=== PATIENT | female | born 1990 | race Caucasian/White ===

== ENCOUNTER 2022-07-01 02:37 | Inpatient (IN) | payer BC ==
[2022-07-01 02:59] LABS: #Eosinphils 0.1 thou/uL (0.0-0.7); #Lymphocytes 3.1 thou/uL (1.20-3.40); #Monocytes 1.3 thou/uL (0.11-0.59); #Neutrophils 9.9 thou/uL (1.40-6.50); %Basophils 0.3 % (0.0-1.0); %Eosinophils 0.6 % (0.0-10.0); %Lymphocytes 21.4 % (21.0-51.0); %Neutrophils 68.8 % (42.0-75.0); Hemoglobin 12.1 g/dL (12.0-16.0); Mean Corpuscular HGB CONC 34.7 g/dL (32.0-36.0); Mean Corpuscular Hemoglobin 31.2 pg (27.0-31.0); Mean Corpuscular Volume 89.9 fl (78.0-98.0); Mean Platelet Volume 6.1 fL (7.4-10.4); Platelet Count 327 10x3/uL (130-400); RBC Distribution Width 11.1 % (11.5-14.5); White Blood Cell (WBC) Count 14.4 10x3/uL (4.8-10.8)
[2022-07-01] MEDS ORDERED: Ketorolac Tromethamine 30 MG/ML VIAL ONE (03:18)
[2022-07-01] MEDS ORDERED: Acetaminophen 500 MG TAB ONE (03:18)
[2022-07-01 03:19] LABS: BHCG - Serum Negative (NEGATIVE); Pregs Control Background? CLEAR/WHITE (CLR/WHITE); Pregs Control Bar Appear? YES (CONTROL BAR)
[2022-07-01 03:37] LABS: ALT (SGPT) 78 U/L (8-55); AST (SGOT) 50 U/L (5-34); Albumin 3.8 g/dL (3.5-5.0); Alkaline Phosphatase 149 U/L (40-110); Anion Gap 14 mmol/L (10-20); BUN (Urea Nitrogen) 6 mg/dL (7.0-18.7); Bilirubin, Total 0.8 mg/dL (0.2-1.2); Calc. Creatinine Clearance 0 mL/min (70-130); Calcium 9.7 mg/dL (7.8-10.44); Carbon Dioxide 26 mmol/L (22-29); Chloride 101 mmol/L (98-107); Estimated GFR 89; Globulin 4.1 g/dL (2.4-3.5); Glucose 114 mg/dL (70-105); Potassium 3.6 mmol/L (3.5-5.1); Protein, Total 7.9 g/dL (6.0-8.3); Sodium 137 mmol/L (136-145)
[2022-07-01 04:36] LABS: SARS-CoV-2 NAA Rapid Test Not Detected (NotDetected)
[2022-07-01] MEDS ORDERED: cefTRIAXone\\ROCEPHIN 2 GM VIAL ONE (04:45)
[2022-07-01] MEDS ORDERED: Azithromycin 250 MG TAB ONE (04:45)
[2022-07-01] MEDS ORDERED: VANCOMYCIN 2 GRAM/500 ML BAG 2 GM in Premix Bag 1 BAG IVPB SCH (06:45)
[2022-07-01] MEDS ORDERED: Acetaminophen 325 MG TAB PO PRN ×2 (08:06→08:08)
[2022-07-01] MEDS ORDERED: Ondansetron PF 4 MG/2 ML Vial IVP PRN (08:07)
[2022-07-01] MEDS ORDERED: Ondansetron ODT 4 MG TAB PO PRN (08:08)
[2022-07-01] MEDS ORDERED: Ipratropium/Albuterol 3 ML NEB NEB PRN (08:08)
[2022-07-01] MEDS ORDERED: Benzonatate 100 MG CAP PO PRN (08:10)
[2022-07-01 08:37] VITALS: BMI 41.2
[2022-07-01] MEDS: Doxycycline 100 MG CAP PO SCH ×2 (09:11→20:32)
[2022-07-01] MEDS: guaiFENesin ER 600 MG TAB PO SCH ×2 (09:12→20:32)
[2022-07-01] MEDS ORDERED: Ipratropium/Albuterol 3 ML NEB NEB SCH (09:30)
[2022-07-01] MEDS ORDERED: Lidocaine 4% PF 5 ML AMP NEB SCH (09:30)
[2022-07-01] MEDS ORDERED: Atropine Sulfate 0.4 mg/1 ml Vial IM SCH (09:30)
[2022-07-01] MEDS ORDERED: Iopamidol 370 76% 100 ML VIAL ONE (09:33)
[2022-07-01] MEDS: Dextrose 5 %-0.45 % NaCl 1,000 ML IV SCH (10:57)
[2022-07-01] MEDS: Morphine 2 MG/ML VIAL SLOW IVP PRN ×2 (11:58→17:22)
[2022-07-01] MEDS: Clindamycin/D5W 900 MG in Premix Bag 1 BAG IVPB SCH ×2 (12:00→20:39)
[2022-07-01] MEDS: Acetaminophen 650 MG Suppository PR PRN ×3 (12:24→20:39)
[2022-07-01] MEDS: Ipratropium/Albuterol 3 ML NEB NEB SCH ×2 (13:01→19:06)
[2022-07-01] MEDS ORDERED: Fentanyl 100 MCG/2 ML VIAL ONE (15:13)
[2022-07-01] MEDS ORDERED: PROPOFOL 200 MG/20 ML VIAL ONE (15:34)
[2022-07-01] MEDS ORDERED: Ondansetron PF 4 MG/2 ML Vial ONE (15:34)
[2022-07-01] MEDS ORDERED: HYDROmorphone 2 MG/ML VIAL SLOW IVP PRN (16:02)
[2022-07-01] MEDS ORDERED: Acetaminophen 500 MG TAB PO SCH (16:45)
[2022-07-01] MEDS ORDERED: Piperacillin/Tazobactam 3.375 GM in Sodium Chloride 0.9% 100 ML IVPB SCH ×2 (17:00→20:00)
[2022-07-01] MEDS: Piperacillin/Tazobactam 3.375 GM in Sodium Chloride 0.9% 100 ML IVPB SCH (22:04)
[2022-07-01] MEDS ORDERED: Ketorolac Tromethamine 30 MG/ML VIAL IVP SCH (22:15)
[2022-07-02] MEDS: Ipratropium/Albuterol 3 ML NEB NEB SCH ×5 (00:04→23:57)
[2022-07-02] MEDS: Morphine 2 MG/ML VIAL SLOW IVP PRN ×2 (02:04→22:23)
[2022-07-02] MEDS: Dextrose 5 %-0.45 % NaCl 1,000 ML IV SCH ×2 (02:56→11:04)
[2022-07-02] MEDS: Clindamycin/D5W 900 MG in Premix Bag 1 BAG IVPB SCH (04:02)
[2022-07-02] MEDS: Piperacillin/Tazobactam 3.375 GM in Sodium Chloride 0.9% 100 ML IVPB SCH ×3 (05:11→21:14)
[2022-07-02] MEDS: guaiFENesin ER 600 MG TAB PO SCH ×2 (06:58→21:18)
[2022-07-02] MEDS: Doxycycline 100 MG CAP PO SCH ×2 (06:58→21:18)
[2022-07-02 07:19] LABS: Anion Gap 15 mmol/L (10-20); BUN (Urea Nitrogen) 7 mg/dL (7.0-18.7); Calc. Creatinine Clearance 181 mL/min (70-130); Calcium 8.8 mg/dL (7.8-10.44); Carbon Dioxide 20 mmol/L (22-29); Chloride 105 mmol/L (98-107); Estimated GFR 102; Glucose 85 mg/dL (70-105); Potassium 4.1 mmol/L (3.5-5.1); Sodium 136 mmol/L (136-145)
[2022-07-02] MEDS: Acetaminophen 650 MG Suppository PR PRN (07:40)
[2022-07-02 07:46] LABS: Strep pneumo Urine Ag NEGATIVE (NEGATIVE)
[2022-07-02] MEDS ORDERED: Ipratropium/Albuterol 3 ML NEB ONE (08:48)
[2022-07-02] MEDS ORDERED: fentaNYL PF 100 MCG/2 ML SYRINGE ONE (09:11)
[2022-07-02] MEDS ORDERED: NEOSTIGMINE 3 MG/3 ML SYR 3 MG/3 ML SYRINGE ONE (09:28)
[2022-07-02] MEDS ORDERED: Glycopyrrolate 0.2 MG/ML 5 ML SYRINGE ONE (09:28)
[2022-07-02] MEDS ORDERED: Lidocaine 1% PF 5 ML VIAL ONE (09:28)
[2022-07-02] MEDS ORDERED: Dexamethasone 20 MG/5 ML VIAL ONE (09:28)
[2022-07-02] MEDS ORDERED: Ondansetron PF 4 MG/2 ML Vial ONE (09:28)
[2022-07-02] MEDS ORDERED: PROPOFOL 200 MG/20 ML VIAL ONE (09:28)
[2022-07-02] MEDS ORDERED: Rocuronium Bromide 10 MG/ML (10ML VIAL) ONE (09:28)
[2022-07-02 11:23] LABS: #Eosinphils 0.1 thou/uL (0.0-0.7); #Lymphocytes 1.1 thou/uL (1.20-3.40); #Monocytes 0.5 thou/uL (0.11-0.59); #Neutrophils 9.8 thou/uL (1.40-6.50); %Basophils 0.1 % (0.0-1.0); %Lymphocytes 9.6 % (21.0-51.0); %Monocytes 4.1 % (0.0-10.0); %Neutrophils 85.2 % (42.0-75.0); Hemoglobin 10.3 g/dL (12.0-16.0); Mean Corpuscular HGB CONC 34.4 g/dL (32.0-36.0); Mean Corpuscular Hemoglobin 31.1 pg (27.0-31.0); Mean Corpuscular Volume 90.3 fl (78.0-98.0); Mean Platelet Volume 6.2 fL (7.4-10.4); Platelet Count 305 10x3/uL (130-400); White Blood Cell (WBC) Count 11.5 10x3/uL (4.8-10.8)
[2022-07-03] MEDS: Dextrose 5 %-0.45 % NaCl 1,000 ML IV SCH (01:19)
[2022-07-03] MEDS: Morphine 2 MG/ML VIAL SLOW IVP PRN ×2 (04:17→16:38)
[2022-07-03] MEDS: Piperacillin/Tazobactam 3.375 GM in Sodium Chloride 0.9% 100 ML IVPB SCH ×2 (05:53→14:38)
[2022-07-03] MEDS: Ipratropium/Albuterol 3 ML NEB NEB SCH ×2 (06:51→12:37)
[2022-07-03] MEDS: Doxycycline 100 MG CAP PO SCH (09:07)
[2022-07-03] MEDS: guaiFENesin ER 600 MG TAB PO SCH (09:07)
[2022-07-03] MEDS ORDERED: D5W-AA 4.25% with LYTES 1,000 ML IV SCH (09:45)
[2022-07-03 17:31] VITALS: BP 103/68; TEMP 97.9
[2022-07-04 20:38] LABS: L.pneumophilia Abs <0.91 OD ratio (0.00-0.90)
[2022-07-04 21:08] LABS: Mycoplasma pneumoniae IgG AB 1156 U/mL (0-99); Mycoplasma pneumoniae IgM AB Less than 770 U/mL (0-769)
[2022-07-06 00:09] LABS: QuantiFERON-TB Gold Plus Negative (Negative)
== END 2022-07-03 17:50 | disposition short-term general hospital (02) | DRG 871 ==
LOC: ERS 02:37 → SUATTDRO 02:37 → T4-A 05:37
PROVIDERS: ADMIT Family Medicine; ATTEND Internal Medicine
PROC: 3E03329 Introduction of Other Anti-infective into Peripheral Vein, Percutaneous Approach (ICD-10-PCS; principal; 2022-07-01)
PROC: 0DB58ZX Excision of Esophagus, Via Natural or Artificial Opening Endoscopic, Diagnostic (ICD-10-PCS; 2022-07-01)
PROC: 0BD68ZX Extraction of Right Lower Lobe Bronchus, Via Natural or Artificial Opening Endoscopic, Diagnostic (ICD-10-PCS; 2022-07-02)
DX: A41.9 Sepsis, unspecified organism (principal); J18.9 Pneumonia, unspecified organism; Z68.41 Body mass index [BMI] 40.0-44.9, adult; Z20.822 Contact with and (suspected) exposure to COVID-19; E66.9 Obesity, unspecified; K22.89 Other specified disease of esophagus; Z79.899 Other long term (current) drug therapy
CPT/HCPCS: 36415; 71046; 71275; 80048; 80053; 83605; 83880; 84484; 84703; 85025; 86480; 86713; 87040; 87070; 87102; 87116; 87205; 87206; 87449; 88112; 88173; 88305; 88312; 88313; 93005; 94640; 96365; 96375; J0696; J1100; J1650; J1885; J2272; J2405; J2543; J2704; J3010; J3370; J3490; J7042; J7620; Q9967

== ENCOUNTER 2022-09-25 07:33 | Outpatient (CLI) | payer BC | END 2022-09-25 07:34 | disposition home or self-care (01) | LOC: BICULT 07:33 | PROVIDERS: ATTEND Internal Medicine Gastroenterology | DX: K22.89 Other specified disease of esophagus (principal); J98.59 Other diseases of mediastinum, not elsewhere classified; R79.89 Other specified abnormal findings of blood chemistry; K76.0 Fatty (change of) liver, not elsewhere classified; R16.1 Splenomegaly, not elsewhere classified | CPT/HCPCS: 76705 ==